=== PATIENT | female | born 1985 | race Caucasian/White ===

== ENCOUNTER 2017-06-14 03:28 | Emergency (ER) | payer SELFPAY ==
[2017-06-14 03:30] VITALS: BP 147/104; PULSE 105; RESP 18; TEMP 98.1; O2SAT 98
[2017-06-14] MEDS ORDERED: ACETA500 PO (03:54)
[2017-06-14] MEDS ORDERED: MECL-62 PO (03:54)
[2017-06-14] MEDS ORDERED: FURO1TAB60 PO (03:54)
[2017-06-14] MEDS ORDERED: TOPI100 PO (03:54)
[2017-06-14] MEDS ORDERED: SODIUM CHLOR 0.9% 1000 ML INJ 1,000 ML IV SCH (04:32)
--- NOTE | 2017-06-14 04:37 | PD ---
HPI Chief Complaint: Flank/Kidney Pain Time Seen by Provider: 04:11 Travel History International Travel<30 days: No Contact w/Intl Traveler<30days: No Traveled to known affect area: No History of Present Illness HPI 32yo F with PMH of nephrolithiasis presents to the ED with c/o left flank pain for 2 days. It was intermittent but now constant. Radiates from left flank to left lower abdomen. Associated with nausea, vomiting, dysuria, hematuria. Pt feels feverish but no documented fever. Denies any chest pain, sob, vaginal bleeding or discharge. Denies any focal weakness or numbness. PFSH Past Medical History Hypertension: Yes (Idiopathic intracranial hypertension) Kidney Stones: Yes Neurologic: Yes ?: Not Past Surgical History Hysterectomy: Yes Social History Alcohol Use: No Tobacco Use: Yes (1 cigarette ) Substance Use: No Allergies-Medications (Allergen,Severity, Reaction): Coded Allergies: amoxicillin (Unverified Allergy, Unknown, 06/14/17) ibuprofen (Unverified Allergy, Unknown, 06/14/17) penicillin G (Unverified Allergy, Unknown, 06/14/17) sumatriptan (Unverified Allergy, Unknown, 06/14/17) Reported Meds & Prescriptions Reported Meds & Active Scripts Active Tylenol (Acetaminophen) 325 Mg Tab 650 Mg PO Q6H PRN Reported Meclizine (Meclizine HCl) 25 Mg Tab 25 Mg PO TID PRN Lasix (Furosemide) 40 Mg Tab 40 Mg PO BID Topamax (Topiramate) 100 Mg Tab 100 Mg PO BID Diamox Sequels ER 12 HR (Acetazolamide) 500 Mg Cap 500 Mg PO TID Review of Systems Except as stated in HPI: all other systems reviewed are Neg Physical Exam Narrative GENERAL: 32yo F in mild distress. SKIN: Focused skin assessment warm/dry. HEAD: Atraumatic. Normocephalic. CARDIOVASCULAR: Regular rate and rhythm. No murmur appreciated. RESPIRATORY: No accessory muscle use. Clear to auscultation. Breath sounds equal bilaterally. GASTROINTESTINAL: Abdomen soft, +TTP LLQ. No rebound tenderness or guarding. BACK: No CVA tenderness bilaterally. MUSCULOSKELETAL: No obvious deformities. No clubbing. No cyanosis. No edema. NEUROLOGICAL: Awake and alert. No obvious cranial nerve deficits. Motor grossly within normal limits. Normal speech. PSYCHIATRIC: Appropriate mood and affect; insight and judgment normal. Data Data Last Documented VS Vital Signs Date Time Temp Pulse Resp B/P (MAP) Pulse Ox O2 Delivery O2 Flow Rate FiO2 06/14/17 07:02 72 17 131/60 (83) 100 Room Air 06/14/17 03:30 98.1 Orders Orders Basic Metabolic Panel (Bmp) (06/14/17 04:32) Complete Blood Count With Diff (06/14/17 04:32) Urinalysis - C+S If Indicated (06/14/17 04:32) Ct Abd/Pel W/O Iv Contrast (06/14/17 04:32) Ondansetron Inj (Zofran Inj) (06/14/17 04:45) Sodium Chlor 0.9% 1000 Ml Inj (Ns 1000 M (06/14/17 04:32) Ed Urine Pregnancytest Poc (06/14/17 04:32) Morphine Inj (Morphine Inj) (06/14/17 04:45) Ed Discharge Order (06/14/17 06:55) Labs Laboratory Tests Test 06/14/17 04:45 White Blood Count 11.7 TH/MM3 Red Blood Count 4.70 MIL/MM3 Hemoglobin 13.5 GM/DL Hematocrit 39.8 % Mean Corpuscular Volume 84.6 FL Mean Corpuscular Hemoglobin 28.8 PG Mean Corpuscular Hemoglobin Concent 34.0 % Red Cell Distribution Width 13.3 % Platelet Count 312 TH/MM3 Mean Platelet Volume 8.1 FL Neutrophils (%) (Auto) 50.8 % Lymphocytes (%) (Auto) 39.5 % Monocytes (%) (Auto) 7.6 % Eosinophils (%) (Auto) 1.5 % Basophils (%) (Auto) 0.6 % Neutrophils # (Auto) 5.9 TH/MM3 Lymphocytes # (Auto) 4.6 TH/MM3 Monocytes # (Auto) 0.9 TH/MM3 Eosinophils # (Auto) 0.2 TH/MM3 Basophils # (Auto) 0.1 TH/MM3 CBC Comment DIFF FINAL Differential Comment Urine Color YELLOW Urine Turbidity HAZY Urine pH 5.5 Urine Specific [place] 1.028 Urine Protein TRACE mg/dL Urine Glucose (UA) NEG mg/dL Urine Ketones NEG mg/dL Urine Occult Blood NEG Urine Nitrite NEG Urine Bilirubin NEG Urine Urobilinogen 2.0 MG/DL Urine Leukocyte Esterase TRACE Urine RBC 3 /hpf Urine WBC 3 /hpf Urine Squamous Epithelial Cells 25 /hpf Urine Amorphous Sediment RARE Urine Bacteria RARE /hpf Urine Hyaline Casts 4 /lpf Urine Mucus FEW /lpf Microscopic Urinalysis Comment CULT NOT INDICATED Blood Urea Nitrogen 21 MG/DL Creatinine 0.66 MG/DL Random Glucose 92 MG/DL Calcium Level 9.0 MG/DL Sodium Level 140 MEQ/L Potassium Level 3.8 MEQ/L Chloride Level 105 MEQ/L Carbon Dioxide Level 26.7 MEQ/L Anion Gap 8 MEQ/L Estimat Glomerular Filtration Rate 104 ML/MIN MDM Medical Decision Making Medical Screen Exam Complete: Yes Emergency Medical Condition: Yes Differential Diagnosis Pyelonephritis vs. nephrolithiasis vs. diverticulitis Narrative Course 32yo F with left flank pain, dysuria, hematuria, and vomiting. Labs reviewed, no leukocytosis. BUN mildly elevated. UA negative for RBC and WBC 3. CT a/p showed no acute abnormality. Pt given NS IVF and zofran and morphine. Pt reevaluated at bedside and pain has improved. Tolerating PO. Return precautions given. Diagnosis Primary Impression: Abdominal pain Qualified Codes: R10.32 - Left lower quadrant pain Patient Instructions: General Instructions Departure Forms: Tests/Procedures Additional Instructions: Please follow up with your primary care physician in 3-7 days. Return to the ED if symptoms worsen. Med/Other Pt SpecificInfo: Prescription(s) given Scripts Acetaminophen (Tylenol) 325 Mg Tab 650 MG PO Q6H Y for PAIN SCALE 1 TO 4, #20 TAB 0 Refills Prov: MarshCristela DO 06/14/17 Disposition: 01 DISCHARGE HOME Condition: Stable Cristela Marsh DO Jun 14, 2017 04:37
[2017-06-14] MEDS ORDERED: ONDANSETRON HCL 4 MG/2 ML VIAL IVP ONE (04:45)
[2017-06-14] MEDS ORDERED: MORPHINE SULFATE 2 MG/ML INJ IV PUSH ONE (04:45)
[2017-06-14 05:07] LABS: AUTOMATED NEUTROPHIL # 5.9 TH/MM3 (1.8-7.7); BASOPHIL # 0.1 TH/MM3 (0-0.2); BASOPHIL % 0.6 % (0.0-2.0); EOSINOPHIL # 0.2 TH/MM3 (0-0.4); EOSINOPHIL % 1.5 % (0.0-4.0); HEMATOCRIT 39.8 % (35.0-46.0); HEMOGLOBIN 13.5 GM/DL (11.6-15.3); LYMPH % 39.5 % (9.0-44.0); LYMPHOCYTE # 4.6 TH/MM3 (1.0-4.8); MEAN CELL VOLUME 84.6 FL (80.0-100.0); MEAN CORPUSCULAR HEMOGLOBIN 28.8 PG (27.0-34.0); MEAN PLATELET VOLUME 8.1 FL (7.0-11.0); MONO % 7.6 % (0.0-8.0); MONOCYTE # 0.9 TH/MM3 (0-0.9); NEUT % 50.8 % (16.0-70.0); PLATELET COUNT 312 TH/MM3 (150-450); RED CELL DISTRIBUTION WIDTH 13.3 % (11.6-17.2); WHITE BLOOD COUNT 11.7 TH/MM3 (4.0-11.0)
[2017-06-14 05:11] LABS: AMORPHOUS SEDIMENT, URINE RARE; BACTERIA, URINE RARE /hpf; BILIRUBIN, URINE NEG (NEG); BLOOD, URINE NEG (NEG); GLUCOSE,URINE NEG (NEG); HYALINE CAST, URINE 4 /lpf (RARE); KETONE, URINE NEG (NEG); MUCUS URINE FEW /lpf (OCC); NITRITE,URINE NEG (NEG); PH, URINE 5.5 (5.0-8.5); SQUAMOUS EPITHELIAL CELL URINE 25 /hpf (0-5); URINE COLOR YELLOW (YELLW/STRAW); URINE LEUKOCYTE ESTERASE TRACE (NEG)
[2017-06-14 05:47] LABS: BICARBONATE 26.7 MEQ/L (21.0-32.0); CREATININE 0.66 MG/DL (0.50-1.00)
--- NOTE | 2017-06-14 05:57 | RADRPT ---
EXAM DATE/TIME: 06/14/2017 05:31 [facility] COMPARISON: No previous studies available for comparison. INDICATIONS : Left flank pain. ORAL CONTRAST: No oral contrast ingested. RADIATION DOSE: 21.32 CTDIvol (mGy) MEDICAL HISTORY : Renal calculi. Hypertension. SURGICAL HISTORY : None. ENCOUNTER: Initial ACUITY: 1 day PAIN SCALE: 5/10 LOCATION: Left flank TECHNIQUE: Volumetric scanning of the abdomen and pelvis was performed. Using automated exposure control and ad justment of the mA and/or kV according to patient size, radiation dose was kept as low as reasonably achievable to obtain optimal diagnostic quality images. DICOM format image data is available electro nically for review and comparison. FINDINGS: LOWER LUNGS: The visualized lower lungs are clear. LIVER: Homogeneous density without lesion. There is no dilation of the biliary tree. The patient is status post cholecystectomy. SPLEEN: Normal size without lesion. PANCREAS: Within normal limits. KIDNEYS: Normal in size and shape. There is no mass, stone, or hydronephrosis. ADRENAL GLANDS: Within normal limits. VASCULAR: There is no aortic aneurysm. BOWEL/MESENTERY: The stomach, small bowel, and colon demonstrate no acute abnormality. There is no free intraperitone al air or fluid. ABDOMINAL WALL: Within normal limits. RETROPERITONEUM: There is no lymphadenopathy. BLADDER: No wall thickening or mass. There are numerous calcifications in the pelvis likely related to phlebol iths. Distal ureteral stones are not seen. REPRODUCTIVE: Within normal limits. INGUINAL: There is no lymphadenopathy or hernia. MUSCULOSKELETAL: Within normal limits for patient age. CONCLUSION: No acute abnormality seen. Jim Graham MD on June 14, 2017 at 5:54 Board Certified Radiologist. This report was verified electronically.
[2017-06-14] MEDS ORDERED: TYLE325T PO (06:55)
[2017-06-14 07:02] VITALS: BP 131/60; PULSE 72; RESP 17; O2SAT 100
== END 2017-06-14 07:24 | disposition home or self-care (01) ==
LOC: NEPE 03:28
DX: R10.32 Left lower quadrant pain (principal); I10 Essential (primary) hypertension; Z87.442 Personal history of urinary calculi; Z88.0 Allergy status to penicillin
CPT/HCPCS: 74176; 80048; 81001; 84703; 85025; 96374; 96375; 99285; J2270; J2405; J7030